=== PATIENT | female | born 1950 | race Caucasian/White ===

== ENCOUNTER → 2019-04-20 15:26 | Outpatient (CLI) | payer MEDICARE, SELFPAY ==
--- NOTE | 2019-04-20 | DI.MRI.S_ITS ---
PROCEDURE: MR KNEE RT WO CON INDICATIONS: Pain in right knee TECHNIQUE: Noncontrast sagittal PD fast spin echo and T2 fast spin echo with fat saturation, sagittal 3-D FLASH with fat saturation; coronal T1 spin echo and PD fast spin echo with fat saturation, and axial PD fast spin echo with fat saturation through the knee. COMPARISON: None. FINDINGS: Image quality: Excellent. Menisci: Oblique tear is seen involving posterior horn of medial meniscus extending to inferior articulating surface. Truncated appearance involving body and posterior horn of lateral meniscus is seen suggestive of prior lateral partial meniscectomy. There is signal abnormality involving anterior horn of lateral meniscus extending to inferior articulating surface suggestive of recurrent tear. Peripheral displacement of lateral meniscus is seen bowing lateral collateral ligament. The meniscal root ligaments appear intact. Cruciate ligaments: The anterior and posterior cruciate ligaments appear intact. Medial structures: The medial collateral ligament appears intact. The posterior oblique ligament, semimembranosus tendon insertions, oblique popliteal ligament, and meniscocapsular junction appear intact. Visualized portions of the pes anserinus tendons appear normal. No abnormal bursal fluid. Lateral structures: The lateral collateral ligament, long and short heads of the biceps femoris tendon appear intact. The popliteus tendon appears normal; the popliteofibular ligament appears intact. The posterosuperior and anteroinferior popliteomeniscal fascicles appear intact. The arcuate and fabellofibular ligaments appear intact, on either side of the lateral inferior geniculate artery. Iliotibial band appears normal. Anterior structures: The quadriceps and patellar tendons appear intact. Patellar alignment is normal. No femoral trochlear dysplasia or ventral trochlear prominence. No edema in the infrapatellar fat pad. 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 No fracture or dislocation. Joint space: There is small to moderate amount of joint effusion. Small popliteal cyst is seen. Normal appearing synovial plicae are incidentally noted. IMPRESSION: 1. 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 No fracture or dislocation. Small to moderate amount of joint fluid, no gross loose body. Small popliteal cyst. 2. Truncated appearance involving body and posterior horn of lateral meniscus suggestive of prior partial meniscectomy. Suggestion of recurrent tear involving anterior horn remnant of lateral meniscus extending to inferior articulating surface. 3. Oblique tear involving posterior horn medial meniscus extending to inferior articulating surface. 4. Cruciate ligaments are intact. Dictated by: Joselito Diaz M.D. on 04/20/2019 at 16:52 Approved by: Joselito Diaz M.D. on 04/20/2019 at 16:57
== END ==
PROVIDERS: Visit Provider Nurse Practitioner Family
DX: M25.561 Pain in right knee (principal); M19.011 Primary osteoarthritis, right shoulder; M94.261 Chondromalacia, right knee; M71.21 Synovial cyst of popliteal space [Baker], right knee; S83.241A Other tear of medial meniscus, current injury, right knee, initial encounter
CPT/HCPCS: 73721